=== PATIENT | female | born 1980 | race African-American/Black ===

== ENCOUNTER 2020-06-26 10:28 | Emergency (ER) | payer MEDICAID ==
[~2020-06-26] VITALS: Ht 165.1 cm; Wt 80.9 kg
[2020-06-26 10:38] VITALS: Ht 165.1 cm; Wt 80.9 kg
[2020-06-26] MEDS ORDERED: PROAIR HFA8.5 G1 (10:39)
[2020-06-26] MEDS ORDERED: LISINOPRIL10 MG PO (10:39)
[2020-06-26] MEDS ORDERED: PERCOCET 7.5/321 TAB PO (11:45)
[2020-06-26 13:05] VITALS: BP 160/85
== END 2020-06-26 13:06 | disposition home or self-care (01) ==
LOC: D.ER 10:28
DX: M23.92 Unspecified internal derangement of left knee (principal); W01.198A Fall on same level from slipping, tripping and stumbling with subsequent striking against other object, initial encounter; M25.562 Pain in left knee